=== PATIENT | male | born 2000 | race Caucasian/White ===

== ENCOUNTER 2021-05-28 14:25 | Inpatient (IN) | payer MEDICAID ==
[~2021-05-28] VITALS: Ht 177.8 cm; Wt 68.0 kg
[2021-05-28] MEDS ORDERED: LEVETIRACETAM 1000MG PREMIX 100 ML IV ONE (15:30)
[2021-05-28 15:46] LABS: BASOPHILS % 0.3 % (0.0-2.0); EOSINOPHILS % 0.6 % (0.0-5.0); HEMATOCRIT. 42.2 % (42.0-52.0); HEMOGLOBIN. 14.3 g/dL (14.0-18.0); LYMPHOCYTES % 21.6 % (20.0-50.0); MEAN CORPUSCULAR HEMOGLOBIN 31.2 pg (28.0-32.0); MEAN CORPUSCULAR VOLUME 92.3 fL (80.0-94.0); MEAN PLATELET VOLUME 10.5 fl (7.4-10.4); NEUTROPHILS % 63.5 % (40.0-76.0); PLATELET 173 x1000/uL (130-400); RED BLOOD CELL COUNT 4.57 mill/uL (4.7-6.1); RED CELL DISTRIBUTION WIDTH 12.9 % (11.6-14.6)
[2021-05-28 15:48] LABS: CHLORIDE 105 mEq/L (98-107)
[2021-05-28 15:53] LABS: ETHANOL BLOOD < 10 mg/dL
[2021-05-28 15:56] LABS: PHOSPHORUS 2.9 mg/dL (2.5-4.9)
[2021-05-28 15:59] LABS: VALPROIC ACID < 3.0 ug/mL (50-100)
[2021-05-28] MEDS ORDERED: DIPHENHYDRAMINE 25MG CAPSULE PO ONE (16:00)
[2021-05-28] MEDS ORDERED: HALOPERIDOL 5MG TABLET PO ONE (16:00)
[2021-05-28 16:12] LABS: CREATINE KINASE 1116 IU/L (39-308)
[2021-05-28] MEDS ORDERED: SODIUM CHLORIDE 0.9% 1,000 ML IV ONE (17:00)
[2021-05-28 18:29] LABS: CLARITY URINE CLOUDY (CLEAR); COLOR URINE YELLOW (YELLOW); KETONES URINE TRACE (NEGATIVE); LEUKOCYTE ESTERASE URINE NEGATIVE (NEGATIVE); NITRITE URINE NEGATIVE (NEGATIVE); OCCULT BLOOD URINE NEGATIVE (NEGATIVE); PH URINE 7.5 (4.5-8.0); PROTEIN URINE NEGATIVE (NEGATIVE); SPECIFIC GRAVITY URINE 1.018 (1.005-1.030)
[2021-05-28 18:39] LABS: *AMPHETAMINES SCREEN URINE NEGATIVE (NEGATIVE); *BENZODIAZEPINES SCREEN URINE NEGATIVE (NEGATIVE); *COCAINE SCREEN URINE NEGATIVE (NEGATIVE)
[2021-05-28 18:40] LABS: CANNABINOID URINE SCREEN NEGATIVE (NEGATIVE); METHADONE URINE SCREEN NEGATIVE (NEGATIVE); OPIATES URINE SCREEN NEGATIVE (NEGATIVE); PHENCYCLIDINE URINE SCREEN NEGATIVE (NEGATIVE)
[2021-05-28 18:42] LABS: *BARBITURATES SCREEN URINE NEGATIVE (NEGATIVE)
[2021-05-28] MEDS ORDERED: ZOLPIDEM TARTRATE 5MG TABLET PO PRN (19:30)
[2021-05-28] MEDS ORDERED: GUAIFENESIN 200MG/10ML SUGAR FREE UDC PO PRN (19:30)
[2021-05-28] MEDS ORDERED: ONDANSETRON HCL 4MG/2ML INJ IV PRN (19:30)
[2021-05-28] MEDS ORDERED: IPRATROPIUM/ALBUTEROL 0.5-3(2.5)MG/3ML NEB NEB PRN (19:30)
[2021-05-28] MEDS: SODIUM CHLORIDE 0.9% 1,000 ML IV SCH (19:30)
[2021-05-28] MEDS ORDERED: DOCUSATE SODIUM 100MG CAPSULE PO PRN (19:30)
[2021-05-28] MEDS ORDERED: CLONIDINE 0.1MG TABLET PO PRN (19:30)
[2021-05-28] MEDS ORDERED: MAGNESIUM/ALUMINUM HYDROXIDE/SIMETHICONE 30ML UDC PO PRN (19:30)
[2021-05-28] MEDS ORDERED: ACETAMINOPHEN 325MG TABLET PO PRN ×2 (19:30)
[2021-05-28] MEDS: LEVETIRACETAM 500MG TABLET PO SCH (20:55)
[2021-05-28] MEDS ORDERED: LORAZEPAM 2MG/ML CPJ IV ONE (21:00)
[2021-05-28] MEDS: DIVALPROEX SODIUM 250MG DR TABLET PO SCH (22:00)
[2021-05-29 00:07] LABS: CREATINE KINASE MB FRACTION 1.1 ng/mL (0.5-3.6)
[2021-05-29] MEDS: LORAZEPAM 2MG/ML CPJ IV PRN ×3 (01:32→11:21)
[2021-05-29] MEDS: SODIUM CHLORIDE 0.9% 1,000 ML IV SCH (05:46)
[2021-05-29] MEDS: DIVALPROEX SODIUM 250MG DR TABLET PO SCH (06:00)
[2021-05-29 06:07] LABS: BASOPHILS % 0.2 % (0.0-2.0); EOSINOPHILS % 0.2 % (0.0-5.0); HEMATOCRIT. 40.3 % (42.0-52.0); HEMOGLOBIN. 13.5 g/dL (14.0-18.0); LYMPHOCYTES % 10.3 % (20.0-50.0); MEAN CORPUSCULAR HEMOGLOBIN 31.6 pg (28.0-32.0); MEAN CORPUSCULAR VOLUME 94.1 fL (80.0-94.0); MEAN PLATELET VOLUME 10.2 fl (7.4-10.4); MONOCYTES % 13.3 % (2.0-8.0); PLATELET 157 x1000/uL (130-400); RED BLOOD CELL COUNT 4.28 mill/uL (4.7-6.1); RED CELL DISTRIBUTION WIDTH 12.5 % (11.6-14.6)
[2021-05-29 06:08] LABS: CHLORIDE 107 mEq/L (98-107)
[2021-05-29 06:13] LABS: CREATINE KINASE 654 IU/L (39-308)
[2021-05-29 06:14] LABS: PHOSPHORUS 3.4 mg/dL (2.5-4.9)
[2021-05-29 06:16] LABS: CREATINE KINASE MB FRACTION < 1.0 ng/mL (0.5-3.6)
[2021-05-29] MEDS: LEVETIRACETAM 500MG TABLET PO SCH (11:23)
[2021-05-29 12:14] VITALS: BP 121/80
== END 2021-05-29 08:32 | DRG 53 ==
LOC: ER 14:25 → EDBEDREQ 17:53 → MICUSO 19:05 → EDBEDREQ 19:32 → EDBEDREQTM 19:32
PROVIDERS: ADMIT Internal Medicine; ATTEND Internal Medicine
DX: G40.89 Other seizures (principal); G92.8 Other toxic encephalopathy; M62.82 Rhabdomyolysis; F84.0 Autistic disorder; F31.9 Bipolar disorder, unspecified
CPT/HCPCS: 36415; 80053; 80165; 80305; 80320; 81003; 82550; 82553; 83605; 83735; 84100; 85025; 93005; 93970; 99285; J1630; J1953; J2060; J7030; Q0163; G0480

== ENCOUNTER 2021-06-04 00:15 | Emergency (ER) | payer MEDICAID ==
[~2021-06-04] VITALS: Ht 177.8 cm; Wt 64.0 kg
[2021-06-04] MEDS ORDERED: LEVETIRACETAM 1000MG PREMIX 100 ML IV ONE (01:00)
[2021-06-04 01:40] LABS: BASOPHILS % 0.4 % (0.0-2.0); EOSINOPHILS % 0.1 % (0.0-5.0); HEMATOCRIT. 36.9 % (42.0-52.0); HEMOGLOBIN. 12.6 g/dL (14.0-18.0); LYMPHOCYTES % 14.7 % (20.0-50.0); MEAN CORPUSCULAR HEMOGLOBIN 32.3 pg (28.0-32.0); MEAN CORPUSCULAR VOLUME 94.1 fL (80.0-94.0); MEAN PLATELET VOLUME 10.1 fl (7.4-10.4); MONOCYTES % 8.6 % (2.0-8.0); NEUTROPHILS % 76.2 % (40.0-76.0); PLATELET 164 x1000/uL (130-400); RED BLOOD CELL COUNT 3.92 mill/uL (4.7-6.1); RED CELL DISTRIBUTION WIDTH 12.8 % (11.6-14.6)
[2021-06-04 01:47] LABS: CHLORIDE 106 mEq/L (98-107)
[2021-06-04] MEDS ORDERED: LORAZEPAM 2MG/ML CPJ IV ONE (02:00)
[2021-06-04 04:00] VITALS: BP 120/86
== END 2021-06-04 05:34 ==
LOC: ER 00:15
DX: R56.9 Unspecified convulsions (principal); F84.0 Autistic disorder; D64.9 Anemia, unspecified; Z86.59 Personal history of other mental and behavioral disorders
CPT/HCPCS: 36415; 80053; 85025; 93005; 96365; 96375; 99284; J1953; J2060